=== PATIENT | male | born 1970 | race Two or more races ===

== ENCOUNTER 2018-09-21 05:33 | Inpatient (IN) | payer SELFPAY ==
[2018-09-21] VITALS (16 sets, daily range): BP systolic 118–173; BP diastolic 78–111
[~2018-09-21] VITALS: Ht 182.9 cm; Wt 75.3 kg
[2018-09-21] MEDS ORDERED: SODIUM CHLORIDE 0.9% 1,000 ML IV ONE (05:35)
[2018-09-21] MEDS ORDERED: MORPHINE SULFATE 4 MG/ML CPJ (NOT FOR IM USE) IV STA (05:35)
[2018-09-21] MEDS ORDERED: ONDANSETRON HCL 4MG/2ML INJ IV STA (05:35)
[2018-09-21] MEDS ORDERED: NICARDIPINE 100 MG in SODIUM CHLORIDE 0.9% 60 ML IV ONE (05:45)
[2018-09-21] MEDS ORDERED: SUCCINYLCHOLINE CHLORIDE 200MG/10ML IV ONE ×2 (05:45)
[2018-09-21] MEDS ORDERED: PROPOFOL 10MG/ML 100ML 100 ML IV ONE ×2 (05:45→09:15)
[2018-09-21] MEDS ORDERED: LABETALOL 5MG/ML SYR 20 MG/4 ML SYRINGE IV ONE (05:45)
[2018-09-21] MEDS ORDERED: MIDAZOLAM HCL 2 MG/2 ML VIAL IV ONE (06:00)
[2018-09-21] MEDS ORDERED: FAMOTIDINE 20MG/2ML VIAL IV ONE (06:00)
[2018-09-21] MEDS ORDERED: MIDAZOLAM HCL 50 MG in DEXTROSE 5% WATER 40 ML IV ONE ×4 (06:00)
[2018-09-21 06:18] LABS: BASOPHILS % 0.6 % (0.0-2.0); EOSINOPHILS % 0.6 % (0.0-5.0); HEMATOCRIT. 44.3 % (42.0-52.0); HEMOGLOBIN. 14.2 g/dL (14.0-18.0); LYMPHOCYTES % 35.5 % (20.0-50.0); MEAN CORPUSCULAR HEMOGLOBIN 23.8 pg (28.0-32.0); MEAN CORPUSCULAR VOLUME 74.3 fL (80.0-94.0); MEAN PLATELET VOLUME 8.3 fl (7.4-10.4); MONOCYTES % 10.3 % (2.0-8.0); PLATELET 354 x1000/uL (130-400); RED BLOOD CELL COUNT 5.97 mill/uL (4.7-6.1); RED CELL DISTRIBUTION WIDTH 17.3 % (11.6-14.6)
[2018-09-21 06:20] LABS: CHLORIDE 109 mEq/L (98-107)
[2018-09-21 06:21] LABS: INR 0.9; PROTHROMBIN TIME 9.8 sec (9.6-11.0)
[2018-09-21 06:24] LABS: ETHANOL BLOOD 257 mg/dL
[2018-09-21] MEDS ORDERED: SODIUM CHLORIDE 0.9% 1000ML BAG (SEPSIS BOLUS) IV ONE (06:45)
[2018-09-21 07:00] LABS: BG DEOXYHEMOGLOBIN 2.8 % (0.0-5.0); BG FRACTION INSPIRED OXYGEN 60; BG HCO3 ACT 19.5 mmol/L (22.0-26.0); BG METHEMOGLOBIN 0.4 % (0.0-1.5); BG OXYGEN SATURATION 97.2 % (92.0-98.5); BG OXYHEMOGLOBIN 95.8 % (94.0-97.0); BG PCO2 47.2 mmHg (35.0-45.0); BG PH 7.233 (7.350-7.450); BG PO2 112.9 mmHg (75.0-100.0); BG SAMPLE SITE RIGHT BRACHIAL; BG TIDAL VOLUME(mL) 500 mL; BG TOTAL HEMOGLOBIN 13.5 g/dL (12.0-18.0); BG VENT MODE VENT - A/C; BG VENT RATE 16 set
[2018-09-21] MEDS ORDERED: VANCOMYCIN 1 G PREMIX 200 ML IV ONE (07:00)
[2018-09-21] MEDS ORDERED: PIPERACILLIN/TAZ 3.375G PREMIX 50 ML IV ONE (07:00)
[2018-09-21 07:44] LABS: CLARITY URINE CLEAR (CLEAR); COLOR URINE YELLOW (YELLOW); KETONES URINE NEGATIVE (NEGATIVE); LEUKOCYTE ESTERASE URINE NEGATIVE (NEGATIVE); NITRITE URINE NEGATIVE (NEGATIVE); OCCULT BLOOD URINE 1+ (NEGATIVE); PROTEIN URINE 2+ (NEGATIVE); SPECIFIC GRAVITY URINE 1.016 (1.005-1.030); UROBILINOGEN URINE 0.2 E.U./dL (0.2-1.0)
[2018-09-21 07:55] LABS: *AMPHETAMINES SCREEN URINE NEGATIVE (NEGATIVE); *BARBITURATES SCREEN URINE NEGATIVE (NEGATIVE); *BENZODIAZEPINES SCREEN URINE NEGATIVE (NEGATIVE); *COCAINE SCREEN URINE PRESUMTIVE POSITIVE (NEGATIVE); CANNABINOID URINE SCREEN NEGATIVE (NEGATIVE); METHADONE URINE SCREEN NEGATIVE (NEGATIVE); OPIATES URINE SCREEN PRESUMTIVE POSITIVE (NEGATIVE); PHENCYCLIDINE URINE SCREEN NEGATIVE (NEGATIVE)
[2018-09-21] MEDS ORDERED: PROPOFOL 10MG/ML 100ML 100 ML IV SCH (09:15)
[2018-09-21] MEDS ORDERED: ONDANSETRON HCL 4MG/2ML INJ IV PRN (09:30)
[2018-09-21] MEDS ORDERED: IPRATROPIUM/ALBUTEROL 0.5-3(2.5)MG/3ML NEB INH PRN (09:30)
[2018-09-21] MEDS ORDERED: DOCUSATE SODIUM 100MG CAPSULE PO PRN (09:30)
[2018-09-21] MEDS ORDERED: NA PHOS,M-B/NA PHOS,DI-BA ENEMA 118ML PR PRN (09:30)
[2018-09-21] MEDS ORDERED: GUAIFENESIN 200MG/10ML SUGAR FREE UDC PO PRN (09:30)
[2018-09-21] MEDS ORDERED: ENOXAPARIN 40MG/0.4ML SYR SUBCUT SCH (09:30)
[2018-09-21] MEDS: DEXT 5%/LACTATED RINGERS 1,000 ML IV SCH ×2 (10:58→22:54)
[2018-09-21] MEDS: PANTOPRAZOLE SODIUM 40 MG/VIAL IV SCH (11:29)
[2018-09-21] MEDS ORDERED: MVI, ADULT NO.1 10 ML, FOLIC ACID 1 MG, THIAMINE HCL 100 MG in SODIUM CHLORIDE 0.9% 1,0... IV SCH ×4 (12:00)
[2018-09-21] MEDS: PIPERACILLIN/TAZOBACTAM 3.375 G in DEXT 5% WATER 100 ML IV SCH ×2 (14:04→18:09)
[2018-09-21] MEDS: PROPOFOL 10MG/ML 100ML 100 ML IV PRN ×3 (14:05→23:10)
[2018-09-21] MEDS: IPRATROPIUM/ALBUTEROL 0.5-3(2.5)MG/3ML NEB HHN SCH ×2 (14:38→20:14)
[2018-09-21] MEDS: ACETAMINOPHEN 325MG TABLET PO PRN (16:55)
[2018-09-21] MEDS: AMLODIPINE 10MG TABLET PO SCH (18:09)
[2018-09-21] MEDS: ENOXAPARIN 30MG/0.3ML SYR SUBCUT SCH (20:39)
[2018-09-21 23:50] LABS: BG BASE EXCESS -3.3 mmol/L (-2.0-2.0); BG CARBOXYHEMOGLOBIN 0.3 % (0.5-1.5); BG DEOXYHEMOGLOBIN 0.8 % (0.0-5.0); BG FRACTION INSPIRED OXYGEN 100; BG HCO3 ACT 22.4 mmol/L (22.0-26.0); BG METHEMOGLOBIN 0.4 % (0.0-1.5); BG OXYGEN SATURATION 99.2 % (92.0-98.5); BG OXYHEMOGLOBIN 98.5 % (94.0-97.0); BG PCO2 42.5 mmHg (35.0-45.0); BG PO2 188.5 mmHg (75.0-100.0); BG SAMPLE SITE RIGHT RADIAL; BG TOTAL HEMOGLOBIN 13.9 g/dL (12.0-18.0); BG VENT MODE MASK - NRB
[2018-09-22] VITALS (66 sets, daily range): BP systolic 119–201; BP diastolic 74–140
[2018-09-22] MEDS: IPRATROPIUM/ALBUTEROL 0.5-3(2.5)MG/3ML NEB HHN SCH ×4 (01:15→20:04)
[2018-09-22] MEDS: CLONIDINE 0.1MG TABLET PO PRN ×3 (01:15→11:36)
[2018-09-22] MEDS: PIPERACILLIN/TAZOBACTAM 3.375 G in DEXT 5% WATER 100 ML IV SCH ×4 (01:22→19:36)
[2018-09-22 06:55] LABS: BG BASE EXCESS 1.7 mmol/L (-2.0-2.0); BG CARBOXYHEMOGLOBIN 0.9 % (0.5-1.5); BG DEOXYHEMOGLOBIN 4.9 % (0.0-5.0); BG FRACTION INSPIRED OXYGEN 32; BG HCO3 ACT 26.5 mmol/L (22.0-26.0); BG METHEMOGLOBIN 0.3 % (0.0-1.5); BG OXYHEMOGLOBIN 93.9 % (94.0-97.0); BG PCO2 42.2 mmHg (35.0-45.0); BG PH 7.416 (7.350-7.450); BG PO2 71.7 mmHg (75.0-100.0); BG SAMPLE SITE RIGHT RADIAL; BG VENT MODE NASAL CANNULA
[2018-09-22] MEDS: ENOXAPARIN 30MG/0.3ML SYR SUBCUT SCH (09:14)
[2018-09-22] MEDS: AMLODIPINE 10MG TABLET PO SCH (09:15)
[2018-09-22] MEDS: PANTOPRAZOLE SODIUM 40 MG/VIAL IV SCH (09:15)
[2018-09-22] MEDS: ACETAMINOPHEN 325MG TABLET PO PRN ×2 (14:42→21:08)
[2018-09-22] MEDS: KETOROLAC 15MG/ML VIAL IV PRN (16:24)
[2018-09-22] MEDS: FAMOTIDINE 20MG/2ML VIAL IV SCH (21:07)
[2018-09-23] VITALS (7 sets, daily range): BP systolic 132–166; BP diastolic 86–112
[2018-09-23] MEDS: PIPERACILLIN/TAZOBACTAM 3.375 G in DEXT 5% WATER 100 ML IV SCH ×2 (00:35→06:28)
[2018-09-23] MEDS: IPRATROPIUM/ALBUTEROL 0.5-3(2.5)MG/3ML NEB HHN SCH ×2 (01:36→08:02)
[2018-09-23] MEDS: KETOROLAC 15MG/ML VIAL IV PRN (06:28)
[2018-09-23] MEDS: CLONIDINE 0.1MG TABLET PO PRN (07:34)
[2018-09-23] MEDS: FAMOTIDINE 20MG/2ML VIAL IV SCH (08:48)
[2018-09-23] MEDS: AMLODIPINE 10MG TABLET PO SCH (08:49)
[2018-09-23] MEDS ORDERED: ENOXAPARIN 40MG/0.4ML SYR SUBCUT SCH (09:00)
== END 2018-09-23 13:33 | disposition home or self-care (01) | DRG 812 ==
LOC: ER 05:33 → EDBD 07:52 → 5EST 07:52 → ENRESERV 07:54 → EDBEDREQ 08:29 → 5EST 09-22 18:24
PROVIDERS: ADMIT Internal Medicine; ATTEND Internal Medicine
PROC: 5A1935Z Respiratory Ventilation, Less than 24 Consecutive Hours (ICD-10-PCS; principal; 2018-09-21)
PROC: 0BH17EZ Insertion of Endotracheal Airway into Trachea, Via Natural or Artificial Opening (ICD-10-PCS; 2018-09-21)
PROC: 5A09357 Assistance with Respiratory Ventilation, Less than 24 Consecutive Hours, Continuous Positive Airway Pressure (ICD-10-PCS; 2018-09-22)
PROC: 5A09357 Assistance with Respiratory Ventilation, Less than 24 Consecutive Hours, Continuous Positive Airway Pressure (ICD-10-PCS; 2018-09-23)
DX: T40.2X1A Poisoning by other opioids, accidental (unintentional), initial encounter (principal); J96.00 Acute respiratory failure, unspecified whether with hypoxia or hypercapnia; G92 Toxic encephalopathy; E87.4 Mixed disorder of acid-base balance; E66.9 Obesity, unspecified; E83.51 Hypocalcemia; F14.10 Cocaine abuse, uncomplicated; F17.200 Nicotine dependence, unspecified, uncomplicated; I10 Essential (primary) hypertension; T40.5X1A Poisoning by cocaine, accidental (unintentional), initial encounter; T51.91XA Toxic effect of unspecified alcohol, accidental (unintentional), initial encounter; Y90.8 Blood alcohol level of 240 mg/100 ml or more; Y92.89 Other specified places as the place of occurrence of the external cause; Z68.22 Body mass index [BMI] 22.0-22.9, adult; Z79.899 Other long term (current) drug therapy
CPT/HCPCS: 36415; 36600; 71045; 80305; 80307; 80320; 80329; 82375; 82805; 83036; 83605; 83880; 83930; 84443; 84478; 84484; 84550; 86850; 86900; 92610; 93005; 93306; 93970; 94002; 94003; 94640; 94660; 96361; 96374; 97162; 99291; C9113; J0330; J1650; J1885; J2250; J2270; J2405; J2543; J2704; J3370; J3411; J3490; J7030; J7050; J7060; J7620; G0480